=== PATIENT | female | born 1975 | race Caucasian/White ===

== ENCOUNTER 2018-09-09 04:14 | Inpatient (IN) | payer MEDICAID ==
[2018-09-09] MEDS ORDERED: LACTATED RINGER'S 1,000 ML IV (04:38)
[2018-09-09] MEDS ORDERED: BUTORPHANOL 2 MG INJ IV (05:00)
[2018-09-09] MEDS ORDERED: OXYTOCIN 30 UNITS/LR 500 ML IV ×2 (05:00→10:30)
[2018-09-09] MEDS ORDERED: METHYLERGONOVINE 0.2 MG INJ IM ×2 (05:00→10:30)
[2018-09-09] MEDS ORDERED: IBUPROFEN 600 MG TAB PO (05:00)
[2018-09-09] MEDS ORDERED: MISOPROSTOL 200 MCG TAB PR ×2 (05:00→10:30)
[2018-09-09] MEDS ORDERED: CARBOPROST 250 MCG INJ IM ×2 (05:00→10:30)
[2018-09-09] MEDS ORDERED: LIDOCAINE 1% (MPF) 30 ML INJ INJ (05:00)
[2018-09-09 05:04] LABS: ADD MAN DIFF? NO
[2018-09-09 05:07] LABS: BASOPHILS % 0.3 % (0.0-2.0); EOSINOPHILS # 0.1 10^3/ul (0.0-0.5); EOSINOPHILS % 1.1 % (0.0-7.0); HEMATOCRIT 34.5 % (37.0-47.0); HEMOGLOBIN 11.6 g/dl (12.0-16.0); LYMPHOCYTES % 21.3 % (15.0-51.0); MEAN CORPUSCULAR HEMOGLOBIN 28.7 pg (29.0-33.0); MEAN CORPUSCULAR HGB CONC 33.6 g/dl (32.0-37.0); MEAN CORPUSCULAR VOLUME 85.4 fl (82.0-101.0); MEAN PLATELET VOLUME 9.6 fl (7.4-10.4); MONOCYTE # 0.7 10^3/ul (0.3-0.9); MONOCYTES % 7.5 % (0.0-11.0); NEUTROPHIL # 6.4 10^3/ul (1.6-7.5); NEUTROPHILS % 69.2 % (39.0-77.0); PLATELET COUNT 308 10^3/UL (140-415); RED BLOOD COUNT 4.04 10^6/ul (4.20-5.40); RED CELL DISTRIBUTION WIDTH 12.9 % (11.5-14.5)
[2018-09-09 05:07] LABS: WHITE BLOOD COUNT 9.3 10^3/ul (4.8-10.8)
[2018-09-09] MEDS: LACTATED RINGER'S 1,000 ML IV (05:13)
[2018-09-09 05:26] LABS: INR 0.84; PROTIME 11.6 Sec (11.9-14.9); PT RATIO 0.9
[2018-09-09 05:27] LABS: PARTIAL THROMBOPLASTIN TIME 26.3 Sec (23.0-35.0)
[2018-09-09] MEDS: OXYTOCIN 30 UNITS/LR 500 ML IV ×2 (07:14)
[2018-09-09 07:57] LABS: HEPATITIS B SURFACE ANTIGEN NEGATIVE (NEGATIVE)
[2018-09-09] MEDS ORDERED: LANOLIN HPA 1 PKT TOP (10:30)
[2018-09-09] MEDS ORDERED: BENZOCAINE 20% 56 ML SPRAY TOP (10:30)
[2018-09-09] MEDS ORDERED: OXYCODONE/ASPIRIN (4.88/325) TAB PO ×2 (10:30)
[2018-09-09] MEDS ORDERED: WITCH HAZEL/GLYCERIN PAD PR (10:30)
[2018-09-09] MEDS ORDERED: ZOLPIDEM 5 MG TAB PO (10:30)
[2018-09-09] MEDS: IBUPROFEN 600 MG TAB PO ×2 (12:35→18:12)
[2018-09-09 14:56] LABS: RAPID PLASMA REAGIN NONREACTIVE (NR)
[2018-09-09] MEDS: SENNA/DOCUSATE NA (8.6MG/50MG) TAB PO (21:13)
[2018-09-10 05:18] LABS: ADD MAN DIFF? NO
[2018-09-10 05:21] LABS: BASOPHILS % 0.2 % (0.0-2.0); EOSINOPHILS # 0.2 10^3/ul (0.0-0.5); EOSINOPHILS % 1.4 % (0.0-7.0); HEMATOCRIT 28.5 % (37.0-47.0); HEMOGLOBIN 9.3 g/dl (12.0-16.0); LYMPHOCYTES # 2.2 10^3/ul (0.8-2.9); LYMPHOCYTES % 20.4 % (15.0-51.0); MEAN CORPUSCULAR HEMOGLOBIN 28.5 pg (29.0-33.0); MEAN CORPUSCULAR HGB CONC 32.6 g/dl (32.0-37.0); MEAN CORPUSCULAR VOLUME 87.4 fl (82.0-101.0); MEAN PLATELET VOLUME 9.9 fl (7.4-10.4); MONOCYTE # 0.9 10^3/ul (0.3-0.9); MONOCYTES % 8.1 % (0.0-11.0); NEUTROPHIL # 7.3 10^3/ul (1.6-7.5); NEUTROPHILS % 69.3 % (39.0-77.0); PLATELET COUNT 268 10^3/UL (140-415); RED BLOOD COUNT 3.26 10^6/ul (4.20-5.40); RED CELL DISTRIBUTION WIDTH 13.2 % (11.5-14.5)
[2018-09-10 05:21] LABS: WHITE BLOOD COUNT 10.5 10^3/ul (4.8-10.8)
[2018-09-10] MEDS: IBUPROFEN 600 MG TAB PO ×5 (06:00→23:38)
[2018-09-10] MEDS: SENNA/DOCUSATE NA (8.6MG/50MG) TAB PO ×2 (10:02→23:38)
[2018-09-11] MEDS: IBUPROFEN 600 MG TAB PO ×2 (05:53→13:23)
[2018-09-11] MEDS: SENNA/DOCUSATE NA (8.6MG/50MG) TAB PO (09:39)
[2018-09-11] MEDS: DIPHTH/TET/ACEL PERTUSS (ADULT) 0.5 ML VIAL IM* (12:12)
== END 2018-09-11 16:19 | disposition home or self-care (01) | DRG 807 ==
LOC: OBT 04:14 → L-D 04:15 → OBT 04:32 → L-D 04:32 → MS1 08:55
PROVIDERS: Obstetrics & Gynecology
PROC: 10E0XZZ Delivery of Products of Conception, External Approach (ICD-10-PCS; principal; 2018-09-09)
DX: O80 Encounter for full-term uncomplicated delivery (principal); Z37.0 Single live birth; Z3A.38 38 weeks gestation of pregnancy
CPT/HCPCS: 76815; 85025; 85610; 85730; 86592; 86850; 86900; 86901; 87340; 90715; 99464